=== PATIENT | female | born 1995 | race Caucasian/White ===

== ENCOUNTER 2017-03-06 13:12 | Inpatient (IN) | payer OTHER, BC ==
[2017-03-06] MEDS ORDERED: Sodium Chloride 0.9% 10 ML Syringe FLUSH PRN (17:07)
[2017-03-06] MEDS ORDERED: Ampicillin 2 GM in Sodium Chloride 0.9% 100 ML IV SCH (17:30)
[2017-03-06] MEDS ORDERED: Ondansetron 4 MG/2 ML SDV IVPUSH PRN (17:35)
[2017-03-06] MEDS ORDERED: Oxytocin/Lactated Ringers 10 UNIT/1,000 ML BAG IV SCH ×2 (17:45)
[2017-03-06] MEDS ORDERED: Ampicillin 2 GM in Sodium Chloride 0.9% 100 ML IV ONE (18:00)
[2017-03-06] MEDS: Lactated Ringers 1,000 ML IV SCH (18:07)
[2017-03-06] MEDS: Misoprostol 25 MCG (1/4 of 100 MCG) Tab VAG SCH ×2 (18:11→22:18)
[2017-03-06] MEDS ORDERED: Ampicillin 1 GM in Sodium Chloride 0.9% 100 ML IV SCH (21:30)
[2017-03-06] MEDS: Ampicillin 1 GM in Sodium Chloride 0.9% 100 ML IV SCH (22:07)
[2017-03-07] MEDS ORDERED: Acetaminophen 325 MG Tab PO PRN (01:43)
[2017-03-07] MEDS: Ampicillin 1 GM in Sodium Chloride 0.9% 100 ML IV SCH ×4 (02:04→22:25)
[2017-03-07] MEDS: Misoprostol 25 MCG (1/4 of 100 MCG) Tab VAG SCH (03:46)
[2017-03-07] MEDS: Nalbuphine 20 MG/1 ML Amp IVPUSH PRN ×2 (07:01→09:19)
[2017-03-07] MEDS: Lactated Ringers 1,000 ML IV SCH (10:20)
[2017-03-07] MEDS ORDERED: diphenhydrAMINE 50 MG/ML SDV IVPUSH PRN ×4 (10:38→16:51)
[2017-03-07] MEDS ORDERED: ePHEDrine 50 MG/ML SDV IVPUSH PRN ×3 (10:38→16:19)
[2017-03-07] MEDS ORDERED: fentaNYL 100 MCG/2 ML SDV EPIDUR PRN (10:38)
[2017-03-07] MEDS ORDERED: Bupivacaine/fentaNYL/NS 100 ML Bag EPIDUR SCH (10:45)
--- NOTE | 2017-03-07 11:30 | PCM.PREANE ---
Preanesthetic Assessment - Anesthesia/Transfusion/Family Hx Anesthesia History: Prior Anesthesia Without Reaction Family History of Anesthesia Reaction: No Transfusion History: No Prior Transfusion(s) Intubation History: Unknown - Review of Systems General: No Symptoms Pulmonary: No Symptoms Cardiovascular: No Symptoms, Other (Borderline Hypertension with ) Gastrointestinal: No Symptoms Neurological: No Symptoms Other: Reports: None - Physical Assessment O2 Sat by Pulse Oximetry: 97 Respiratory Rate: 18 Vital Signs: Last Vital Signs Temp 37.3 C 03/06/17 16:00 Pulse 88 03/06/17 16:00 Resp 18 03/06/17 16:00 BP 143/78 H 03/06/17 16:00 Pulse Ox 97 03/06/17 16:00 Height: 1.7 m Weight: 133.356 kg ASA Class: 2 Mental Status: Alert & Oriented x3 Airway Class: Mallampati = 2 Dentition: Reports: Normal Dentition Thyro-Mental Finger Breadths: 3 Mouth Opening Finger Breadths: 3 ROM/Head Extension: Full Lungs: Clear to Auscultation, Normal Respiratory Effort Cardiovascular: Regular Rate, Regular Rhythm - Lab Values: Laboratory Last Values WBC 14.54 K/mm3 (3.98-10.04) H 03/07/17 02:42 RBC 3.99 M/mm3 (3.98-5.22) 03/07/17 02:42 Hgb 11.8 gm/L (11.2-15.7) 03/07/17 02:42 Hct 35.8 % (34.1-44.9) 03/07/17 02:42 MCV 89.7 fl (79.4-94.8) 03/07/17 02:42 MCH 29.6 pg (25.6-32.2) 03/07/17 02:42 MCHC 33.0 g/dl (32.2-35.5) 03/07/17 02:42 RDW Std Deviation 46.9 fL (36.4-46.3) H 03/07/17 02:42 Plt Count 302 K/mm3 (182-369) 03/07/17 02:42 MPV 10.1 fl (9.4-12.3) 03/07/17 02:42 Neut % (Auto) 75.1 % (34.0-71.1) H 03/07/17 02:42 Lymph % (Auto) 14.9 % (19.3-51.7) L 03/07/17 02:42 [place] % (Auto) 8.3 % (4.7-12.5) 03/07/17 02:42 Eos % (Auto) 1.2 (0.7-5.8) 03/07/17 02:42 Baso % (Auto) 0.2 % (0.1-1.2) 03/07/17 02:42 Neut # (Auto) 10.92 K/mm3 (1.56-6.13) H 03/07/17 02:42 Lymph # (Auto) 2.16 K/mm3 (1.18-3.74) 03/07/17 02:42 [place] # (Auto) 1.20 K/mm3 (0.24-0.36) H 03/07/17 02:42 Eos # (Auto) 0.18 K/mm3 (0.04-0.36) 03/07/17 02:42 Baso # (Auto) 0.03 K/mm3 (0.01-0.08) 03/07/17 02:42 BUN 9 mg/dL (7-18) 03/07/17 02:42 Creatinine 0.7 mg/dL (0.55-1.02) 03/07/17 02:42 Est Cr Clr Drug Dosing 121.55 mL/min 03/07/17 02:42 Estimated GFR (MDRD) > 60 mL/min (>60) 03/07/17 02:42 Uric Acid 4.6 mg/dL (2.6-6.0) 03/07/17 02:42 AST 26 U/L (15-37) 03/07/17 02:42 ALT 22 U/L (14-59) 03/07/17 02:42 Lactate Dehydrogenase 153 U/L (81-234) 03/07/17 02:42 - Allergies Allergies/Adverse Reactions: Allergies Allergy/AdvReac Type Severity Reaction Status Date / Time adhesive Allergy Mild Rash Verified 03/06/17 16:34 minocycline Allergy Hives Verified 06/09/15 14:50 - Acknowledgements Anesthesia Type Planned: Epidural Pt an Appropriate Candidate for the Planned Anesthesia: Yes Alternatives and Risks of Anesthesia Discussed w Pt/Guardian: Yes Pt/Guardian Understands and Agrees with Anesthesia Plan: Yes PreAnesthesia Questionnaire - Past Health History Medical/Surgical History: Denies Medical/Surgical History Endocrine/Metabolic History: Reports: Obesity/BMI 30+ Dermatologic History: Reports: Other (See Below) Other Dermatologic History: acne - Past Surgical History HEENT Surgical History: Reports: Oral Surgery - SUBSTANCE USE Smoking Status *Q: Never Smoker Tobacco Use Within Last Twelve Months: No Second Hand Smoke Exposure: No Recreational Drug Use History: No - HOME MEDS Home Medications: Home Meds PNV95/Ferrous Fumarate/FA [ Tablet] 1 each PO DAILY 06/09/15 [History] Spironolactone 1 tab PO DAILY 06/09/15 [History] - CURRENT (IN HOUSE) MEDS Current Meds: Current Medications Acetaminophen (Tylenol) 650 mg PO Q4H PRN PRN Reason: Headache Last Admin: 03/07/17 02:02 Dose: 650 mg Diphenhydramine HCl (Benadryl) 25 mg IVPUSH Q6H PRN PRN Reason: Pruritis Ephedrine Sulfate (Ephedrine Sulfate) 5 mg IVPUSH ASDIRECTED PRN PRN Reason: Hypotension Fentanyl (Sublimaze) 100 mcg EPIDUR ONETIME PRN PRN Reason: Pain Last Admin: 03/07/17 11:20 Dose: 100 mcg Fentanyl/Bupivacaine HCl (Fentanyl/Bupivacaine/Ns 2 Mcg-0.125% 100 Ml) 100 ml EPIDUR ASDIRECTED AMISHA Last Admin: 03/07/17 11:19 Dose: 100 ml Lactated Ringer's (Ringers, Lactated) 1,000 mls @ 40 mls/hr IV ASDIRECTED AMISHA Last Admin: 03/07/17 10:20 Dose: 40 mls/hr Oxytocin/Lactated Ringer's (Pitocin In Lr 10 Units/1,000 Ml) 10 unit in 1,000 mls @ 12 mls/hr IV TITRATE AMISHA; 2 MUNITS/MIN PRN Reason: Protocol Last Titration: 03/07/17 08:28 Dose: 8 munits/min, 48 mls/hr Oxytocin/Lactated Ringer's (Pitocin In Lr 10 Units/1,000 Ml) 10 unit in 1,000 mls @ 500 mls/hr IV .CONTINUOUS AMISHA Ampicillin Sodium 1 gm/ Sodium (Chloride) 100 mls @ 200 mls/hr IV Q4H AMISHA Last Admin: 03/07/17 10:01 Dose: 200 mls/hr Nalbuphine HCl (Nubain) 10 mg IVPUSH Q2H PRN PRN Reason: Pain (moderate 4-6) Last Admin: 03/07/17 09:19 Dose: 10 mg Ondansetron HCl (Zofran) 4 mg IVPUSH Q4H PRN PRN Reason: Nausea/Vomiting Sodium Chloride (Saline Flush) 10 ml FLUSH ASDIRECTED PRN PRN Reason: Keep Vein Open Discontinued Medications Ampicillin Sodium 2 gm/ Sodium (Chloride) 100 mls @ 200 mls/hr IV NOW AMISHA Ampicillin Sodium 1 gm/ Sodium (Chloride) 100 mls @ 200 mls/hr IV Q4H [facility] Ampicillin Sodium 2 gm/ Sodium (Chloride) 100 mls @ 200 mls/hr IV ONETIME ONE Stop: 03/06/17 18:29 Last Admin: 03/06/17 18:08 Dose: 200 mls/hr Misoprostol (Cytotec) 25 mcg VAG Q4HR [facility] Stop: 03/07/17 01:01 Last Admin: 03/07/17 03:46 Dose: Not Given
[2017-03-07] MEDS ORDERED: Bupivacaine 0.25% 10 ML SDV ONE (12:00)
[2017-03-07] MEDS ORDERED: Bupivacaine 0.5% 30 ML SDV ONE (12:33)
[2017-03-07] MEDS ORDERED: ceFAZolin 1 GM in Premix Bag 1 BAG IV ONE (12:41)
[2017-03-07] MEDS ORDERED: ceFAZolin 2 GM in Premix Bag 1 BAG IV ONE (12:41)
[2017-03-07] MEDS ORDERED: Citric Acid/Sodium Citrate Solution 30 ML Cup PO ONE (12:41)
[2017-03-07] MEDS ORDERED: Metoclopramide 10 MG/2 ML SDV IVPUSH ONE (12:41)
--- NOTE | 2017-03-07 12:49 | PCM.LDHP ---
L&D History of Present Illness - General Date of Service: 03/06/17 Admit Problem/Dx: Patient Status Order with Admit Dx/Problem 03/06/17 17:32 Patient Status [ADT] Routine Admission Diagnosis/Problem Admission Diagnosis/Problem - History of Present Illness Introduction:: 21 year old female here with elevated blood pressures at 39+ week for induction of labor. Pain Score: 8 - Related Data Allergies/Adverse Reactions: Allergies Allergy/AdvReac Type Severity Reaction Status Date / Time adhesive Allergy Mild Rash Verified 03/06/17 16:34 minocycline Allergy Hives Verified 06/09/15 14:50 Home Medications: Home Meds PNV95/Ferrous Fumarate/FA [ Tablet] 1 each PO DAILY 06/09/15 [History] Spironolactone 1 tab PO DAILY 06/09/15 [History] Past Medical History - Past Health History Medical/Surgical History: Denies Medical/Surgical History Endocrine/Metabolic History: Reports: Obesity/BMI 30+ Dermatologic History: Reports: Other (See Below) Other Dermatologic History: acne - Past Surgical History HEENT Surgical History: Reports: Oral Surgery Social & Family History - Family History Family Medical History: Noncontributory - Tobacco Use Smoking Status *Q: Never Smoker Used Tobacco, but Quit: No Second Hand Smoke Exposure: No - Caffeine Use Caffeine Use: Reports: None - Recreational Drug Use Recreational Drug Use: No Drug Use in Last 12 Months: No H&P Review of Systems - Review of Systems: Review Of Systems: See Below General: Reports: No Symptoms HEENT: Reports: No Symptoms Pulmonary: Reports: No Symptoms Cardiovascular: Reports: No Symptoms Gastrointestinal: Reports: No Symptoms Genitourinary: Reports: No Symptoms Musculoskeletal: Reports: No Symptoms Skin: Reports: No Symptoms Psychiatric: Reports: No Symptoms Neurological: Reports: No Symptoms Hematologic/Lymphatic: Reports: No Symptoms Immunologic: Reports: No Symptoms L&D Exam - Exam Exam: See Below - Vital Signs Vital Signs: Last Vital Signs Temp 36.9 C 03/07/17 12:00 Pulse 81 03/07/17 12:00 Resp 18 03/07/17 12:00 BP 111/49 L 03/07/17 12:00 Pulse Ox 100 03/07/17 12:00 Weight: 133.356 kg - OB Specific Contraction Intensity: Moderate to Strong Movement: Active Heart Tones: Present Heart Tones per Min: 145 Heart Rate (FHR) Variability: Moderate (6-25 bmp) Presentation: Vertex - [place]icona Score Licona Score Cervix Position: Posterior [place] Score Consistency: Firm [place] Score Effacement: 0-30% [place] Score Dilation: Closed [place] Score 's Station: -3 [place] Score Total: 0 - Exam General: Alert, Oriented HEENT: PERRLA, Conjunctiva Clear, EACs Clear, EOMI, Hearing Intact, Mucosa Moist & [place] Extension, Nares Patent, Normal Nasal Septum, Posterior Pharynx Clear, TMs Clear Neck: Supple, Trachea Midline Lungs: Clear to Auscultation, Normal Respiratory Effort Cardiovascular: Regular Rate, Regular Rhythm GI/Abdominal Exam: Normal Bowel Sounds, Soft, Non-Tender, No Organomegaly, No Distention, No Abnormal Bruit, No Mass, Pelvis Stable Rectal Exam: Normal Exam, Normal Rectal Tone Genitourinary: Normal external exam, Normal bimanual exam, Normal speculum exam Back Exam: Normal Inspection, Full Range of Motion Extremities: Normal Inspection, Normal Range of Motion, Non-Tender, No Pedal Edema, Normal Capillary Refill Skin: Warm, Dry, Intact Neurological: Cranial Nerves Intact, Reflexes Equal Bilateral Psychiatric: Alert, Normal Affect, Normal Mood - Patient Data Lab Results Last 24 hrs: Laboratory Results - last 24 hr 03/06/17 03/07/17 03/07/17 Range/Units 18:19 02:42 02:42 WBC 13.39 H 14.54 H (3.98-10.04) K/mm3 RBC 4.26 3.99 (3.98-5.22) M/mm3 Hgb 12.7 11.8 (11.2-15.7) gm/L Hct 38.3 35.8 (34.1-44.9) % MCV 89.9 89.7 (79.4-94.8) fl MCH 29.8 29.6 (25.6-32.2) pg MCHC 33.2 33.0 (32.2-35.5) g/dl RDW Std Deviation 47.4 H 46.9 H (36.4-46.3) fL Plt Count 340 302 (182-369) K/mm3 MPV 10.1 10.1 (9.4-12.3) fl Neut % (Auto) 77.5 H 75.1 H (34.0-71.1) % Lymph % (Auto) 12.7 L 14.9 L (19.3-51.7) % [place] % (Auto) 8.2 8.3 (4.7-12.5) % Eos % (Auto) 1.0 1.2 (0.7-5.8) Baso % (Auto) 0.2 0.2 (0.1-1.2) % Neut # (Auto) 10.36 H 10.92 H (1.56-6.13) K/mm3 Lymph # (Auto) 1.70 2.16 (1.18-3.74) K/mm3 [place] # (Auto) 1.10 H 1.20 H (0.24-0.36) K/mm3 Eos # (Auto) 0.14 0.18 (0.04-0.36) K/mm3 Baso # (Auto) 0.03 0.03 (0.01-0.08) K/mm3 BUN 9 (7-18) mg/dL Creatinine 0.7 (0.55-1.02) mg/dL Est Cr Clr Drug Dosing 121.55 mL/min Estimated GFR (MDRD) > 60 (>60) mL/min Uric Acid 4.6 (2.6-6.0) mg/dL AST 26 (15-37) U/L ALT 22 (14-59) U/L Lactate Dehydrogenase 153 (81-234) U/L Blood Type 03/07/17 Range/Units 12:00 WBC (3.98-10.04) K/mm3 RBC (3.98-5.22) M/mm3 Hgb (11.2-15.7) gm/L Hct (34.1-44.9) % MCV (79.4-94.8) fl MCH (25.6-32.2) pg MCHC (32.2-35.5) g/dl RDW Std Deviation (36.4-46.3) fL Plt Count (182-369) K/mm3 MPV (9.4-12.3) fl Neut % (Auto) (34.0-71.1) % Lymph % (Auto) (19.3-51.7) % [place] % (Auto) (4.7-12.5) % Eos % (Auto) (0.7-5.8) Baso % (Auto) (0.1-1.2) % Neut # (Auto) (1.56-6.13) K/mm3 Lymph # (Auto) (1.18-3.74) K/mm3 [place] # (Auto) (0.24-0.36) K/mm3 Eos # (Auto) (0.04-0.36) K/mm3 Baso # (Auto) (0.01-0.08) K/mm3 BUN (7-18) mg/dL Creatinine (0.55-1.02) mg/dL Est Cr Clr Drug Dosing mL/min Estimated GFR (MDRD) (>60) mL/min Uric Acid (2.6-6.0) mg/dL AST (15-37) U/L ALT (14-59) U/L Lactate Dehydrogenase (81-234) U/L Blood Type O POSITIVE Result Diagrams: 03/07/17 02:42 03/07/17 02:42 Problem List Initiated/Reviewed/Updated: Yes Orders Last 24hrs: Active Orders 24 hr Category Date Time Status Patient Status [ADT] Routine ADT 03/06/17 17:32 Active Communication Order [RC] ASDIRECTED Care 03/06/17 17:07 Active Communication Order [RC] ASDIRECTED Care 03/06/17 17:07 Active Communication Order [RC] ASDIRECTED Care 03/07/17 02:40 Active Notify Provider [RC] ASDIRECTED Care 03/06/17 17:07 Active Notify Provider [RC] ASDIRECTED Care 03/07/17 10:38 Active Peripheral IV Care [RC] . DIRECTED Care 03/06/17 17:07 Active Procedure Site Prep Instruct [RC] ASDIRECTED Care 03/07/17 12:41 Active Verify Patient Consent Obtain [RC] PER UNIT ROUTINE Care 03/07/17 12:41 Active Regular Diet [DIET] Diet 03/06/17 Dinner Active PATIENT RETYPE [BBK] Stat Lab 03/07/17 12:00 Results TYPE AND SCREEN [BBK] Stat Lab 03/07/17 12:00 Results Acetaminophen [Tylenol] Med 03/07/17 01:43 Active 650 mg PO Q4H PRN Ampicillin 1 gm Med 03/06/17 22:00 Active Sodium Chloride 0.9% [Normal Saline] 100 ml IV Q4H Bupivacaine/fentaNYL/NS [fentaNYL/Bupivacaine/NS 2 MCG- Med 03/07/17 10:45 Active 0.125% 100 ML] 100 ml EPIDUR ASDIRECTED Lactated Ringers [Ringers, Lactated] 1,000 ml Med 03/06/17 17:15 Active IV ASDIRECTED Nalbuphine [Nubain] Med 03/06/17 17:35 Active 10 mg IVPUSH Q2H PRN Ondansetron [Zofran] Med 03/06/17 17:35 Active 4 mg IVPUSH Q4H PRN Oxytocin/Lactated Ringers [Pitocin in LR 10 Units/1,000 Med 03/06/17 17:45 Active ML] 10 unit in 1,000 ml IV .CONTINUOUS Oxytocin/Lactated Ringers [Pitocin in LR 10 Units/1,000 Med 03/06/17 17:45 Active ML] 10 unit in 1,000 ml IV TITRATE Sodium Chloride 0.9% [Saline Flush] Med 03/06/17 17:07 Active 10 ml FLUSH ASDIRECTED PRN ceFAZolin [Ancef] 1 gm Med 03/07/17 12:41 Active Premix Bag 1 bag IV ONETIME ceFAZolin [Ancef] 2 gm Med 03/07/17 12:41 Active Premix Bag 1 bag IV ONETIME diphenhydrAMINE [Benadryl] Med 03/07/17 10:38 Active 25 mg IVPUSH Q6H PRN ePHEDrine [ePHEDrine Sulfate] Med 03/07/17 10:38 Active 5 mg IVPUSH ASDIRECTED PRN fentaNYL [Sublimaze] Med 03/07/17 10:38 Active 100 mcg EPIDUR ONETIME PRN PIH Panel [OM.PC] Routine Oth 03/07/17 02:15 Ordered Peripheral IV Insertion Adult [OM.PC] Routine Oth 03/06/17 17:07 Ordered Schedule Procedure [COMM] Per Unit Routine Oth 03/07/17 12:41 Ordered Resuscitation Status Routine Resus Stat 03/06/17 17:35 Ordered Medication Orders Acetaminophen (Tylenol) 650 mg PO Q4H PRN PRN Reason: Headache Last Admin: 03/07/17 02:02 Dose: 650 mg Diphenhydramine HCl (Benadryl) 25 mg IVPUSH Q6H PRN PRN Reason: Pruritis Ephedrine Sulfate (Ephedrine Sulfate) 5 mg IVPUSH ASDIRECTED PRN PRN Reason: Hypotension Fentanyl (Sublimaze) 100 mcg EPIDUR ONETIME PRN PRN Reason: Pain Last Admin: 03/07/17 11:20 Dose: 100 mcg Fentanyl/Bupivacaine HCl (Fentanyl/Bupivacaine/Ns 2 Mcg-0.125% 100 Ml) 100 ml EPIDUR ASDIRECTED AMISHA Last Admin: 03/07/17 11:19 Dose: 100 ml Lactated Ringer's (Ringers, Lactated) 1,000 mls @ 40 mls/hr IV ASDIRECTED AMISHA Last Admin: 03/07/17 10:20 Dose: 40 mls/hr Infusion: 03/07/17 10:20 Dose: 40 mls/hr Admin: 03/06/17 18:07 Dose: 40 mls/hr Oxytocin/Lactated Ringer's (Pitocin In Lr 10 Units/1,000 Ml) 10 unit in 1,000 mls @ 12 mls/hr IV TITRATE AMISHA; 2 MUNITS/MIN PRN Reason: Protocol Last Titration: 03/07/17 08:28 Dose: 8 munits/min, 48 mls/hr Titration: 03/07/17 05:20 Dose: 6 munits/min, 36 mls/hr Titration: 03/07/17 04:22 Dose: 4 munits/min, 24 mls/hr Admin: 03/07/17 03:44 Dose: 2 munits/min, 12 mls/hr Oxytocin/Lactated Ringer's (Pitocin In Lr 10 Units/1,000 Ml) 10 unit in 1,000 mls @ 500 mls/hr IV .CONTINUOUS AMISHA Ampicillin Sodium 1 gm/ Sodium (Chloride) 100 mls @ 200 mls/hr IV Q4H AMISHA Last Admin: 03/07/17 10:01 Dose: 200 mls/hr Infusion: 03/07/17 07:30 Dose: 200 mls/hr Admin: 03/07/17 07:00 Dose: 200 mls/hr Infusion: 03/07/17 02:34 Dose: 200 mls/hr Admin: 03/07/17 02:04 Dose: 200 mls/hr Infusion: 03/06/17 22:37 Dose: 200 mls/hr Admin: 03/06/17 22:07 Dose: 200 mls/hr Cefazolin Sodium/Dextrose 1 gm (/ Premix) 50 mls @ 100 mls/hr IV ONETIME ONE Stop: 03/07/17 13:10 Cefazolin Sodium/Dextrose 2 gm (/ Premix) 50 mls @ 100 mls/hr IV ONETIME ONE Stop: 03/07/17 13:10 Nalbuphine HCl (Nubain) 10 mg IVPUSH Q2H PRN PRN Reason: Pain (moderate 4-6) Last Admin: 03/07/17 09:19 Dose: 10 mg Admin: 03/07/17 07:01 Dose: 10 mg Ondansetron HCl (Zofran) 4 mg IVPUSH Q4H PRN PRN Reason: Nausea/Vomiting Sodium Chloride (Saline Flush) 10 ml FLUSH ASDIRECTED PRN PRN Reason: Keep Vein Open Assessment/Plan Comment:: Term induction for gestational hypertension. Cytotec
--- NOTE | 2017-03-07 12:51 | PCM.PNLD ---
Labor Progress Note - VS & Meds Vital Signs: Last Vital Signs Temp 36.9 C 03/07/17 12:00 Pulse 81 03/07/17 12:00 Resp 18 03/07/17 12:00 BP 111/49 L 03/07/17 12:00 Pulse Ox 100 03/07/17 12:00 Active Medications: Current Medications Acetaminophen (Tylenol) 650 mg PO Q4H PRN PRN Reason: Headache Last Admin: 03/07/17 02:02 Dose: 650 mg Diphenhydramine HCl (Benadryl) 25 mg IVPUSH Q6H PRN PRN Reason: Pruritis Ephedrine Sulfate (Ephedrine Sulfate) 5 mg IVPUSH ASDIRECTED PRN PRN Reason: Hypotension Fentanyl (Sublimaze) 100 mcg EPIDUR ONETIME PRN PRN Reason: Pain Last Admin: 03/07/17 11:20 Dose: 100 mcg Fentanyl/Bupivacaine HCl (Fentanyl/Bupivacaine/Ns 2 Mcg-0.125% 100 Ml) 100 ml EPIDUR ASDIRECTED AMISHA Last Admin: 03/07/17 11:19 Dose: 100 ml Lactated Ringer's (Ringers, Lactated) 1,000 mls @ 40 mls/hr IV ASDIRECTED AMISHA Last Admin: 03/07/17 10:20 Dose: 40 mls/hr Oxytocin/Lactated Ringer's (Pitocin In Lr 10 Units/1,000 Ml) 10 unit in 1,000 mls @ 12 mls/hr IV TITRATE AMISHA; 2 MUNITS/MIN PRN Reason: Protocol Last Titration: 03/07/17 08:28 Dose: 8 munits/min, 48 mls/hr Oxytocin/Lactated Ringer's (Pitocin In Lr 10 Units/1,000 Ml) 10 unit in 1,000 mls @ 500 mls/hr IV .CONTINUOUS AMISHA Ampicillin Sodium 1 gm/ Sodium (Chloride) 100 mls @ 200 mls/hr IV Q4H AMISHA Last Admin: 03/07/17 10:01 Dose: 200 mls/hr Cefazolin Sodium/Dextrose 1 gm (/ Premix) 50 mls @ 100 mls/hr IV ONETIME ONE Stop: 03/07/17 13:10 Cefazolin Sodium/Dextrose 2 gm (/ Premix) 50 mls @ 100 mls/hr IV ONETIME ONE Stop: 03/07/17 13:10 Nalbuphine HCl (Nubain) 10 mg IVPUSH Q2H PRN PRN Reason: Pain (moderate 4-6) Last Admin: 03/07/17 09:19 Dose: 10 mg Ondansetron HCl (Zofran) 4 mg IVPUSH Q4H PRN PRN Reason: Nausea/Vomiting Sodium Chloride (Saline Flush) 10 ml FLUSH ASDIRECTED PRN PRN Reason: Keep Vein Open Discontinued Medications Bupivacaine HCl (Marcaine 0.5%) Confirm Administered Dose 30 ml .ROUTE .STK-MED ONE Stop: 03/07/17 12:34 Citric Acid/Sodium Citrate (Bicitra Solution) 30 ml PO ONETIME ONE Stop: 03/07/17 12:42 Ampicillin Sodium 2 gm/ Sodium (Chloride) 100 mls @ 200 mls/hr IV NOW AMISHA Ampicillin Sodium 1 gm/ Sodium (Chloride) 100 mls @ 200 mls/hr IV Q4H AMISHA Ampicillin Sodium 2 gm/ Sodium (Chloride) 100 mls @ 200 mls/hr IV ONETIME ONE Stop: 03/06/17 18:29 Last Admin: 03/06/17 18:08 Dose: 200 mls/hr Metoclopramide HCl (Reglan) 10 mg IVPUSH ONETIME ONE Stop: 03/07/17 12:42 Misoprostol (Cytotec) 25 mcg VAG Q4HR AMISHA Stop: 03/07/17 01:01 Last Admin: 03/07/17 03:46 Dose: Not Given - Uterine Contractions Uterine Monitoring Mode: External [place] Contraction Intensity: Mild to Moderate Uterine Resting Tone: Soft - Monitoring Monitor Mode: External Ultrasound Heart Rate (FHR) Baseline: 140 Heart Rate (FHR) Variability: Moderate (6-25 bmp) Strip Review: Category I - Vaginal Exam Dilation (cm): 2 Station: -3 Cervical Position: Midposition - Labor Progress (Free Text) Labor Progress: Good progress with cytotec and now pitocin.
--- NOTE | 2017-03-07 12:52 | PCM.PNLD ---
Labor Progress Note - VS & Meds Vital Signs: Last Vital Signs Temp 36.9 C 03/07/17 12:00 Pulse 81 03/07/17 12:00 Resp 18 03/07/17 12:00 BP 111/49 L 03/07/17 12:00 Pulse Ox 100 03/07/17 12:00 Active Medications: Current Medications Acetaminophen (Tylenol) 650 mg PO Q4H PRN PRN Reason: Headache Last Admin: 03/07/17 02:02 Dose: 650 mg Diphenhydramine HCl (Benadryl) 25 mg IVPUSH Q6H PRN PRN Reason: Pruritis Ephedrine Sulfate (Ephedrine Sulfate) 5 mg IVPUSH ASDIRECTED PRN PRN Reason: Hypotension Fentanyl (Sublimaze) 100 mcg EPIDUR ONETIME PRN PRN Reason: Pain Last Admin: 03/07/17 11:20 Dose: 100 mcg Fentanyl/Bupivacaine HCl (Fentanyl/Bupivacaine/Ns 2 Mcg-0.125% 100 Ml) 100 ml EPIDUR ASDIRECTED AMISHA Last Admin: 03/07/17 11:19 Dose: 100 ml Lactated Ringer's (Ringers, Lactated) 1,000 mls @ 40 mls/hr IV ASDIRECTED AMISHA Last Admin: 03/07/17 10:20 Dose: 40 mls/hr Oxytocin/Lactated Ringer's (Pitocin In Lr 10 Units/1,000 Ml) 10 unit in 1,000 mls @ 12 mls/hr IV TITRATE AMISHA; 2 MUNITS/MIN PRN Reason: Protocol Last Titration: 03/07/17 08:28 Dose: 8 munits/min, 48 mls/hr Oxytocin/Lactated Ringer's (Pitocin In Lr 10 Units/1,000 Ml) 10 unit in 1,000 mls @ 500 mls/hr IV .CONTINUOUS AMISHA Ampicillin Sodium 1 gm/ Sodium (Chloride) 100 mls @ 200 mls/hr IV Q4H AMISHA Last Admin: 03/07/17 10:01 Dose: 200 mls/hr Cefazolin Sodium/Dextrose 1 gm (/ Premix) 50 mls @ 100 mls/hr IV ONETIME ONE Stop: 03/07/17 13:10 Cefazolin Sodium/Dextrose 2 gm (/ Premix) 50 mls @ 100 mls/hr IV ONETIME ONE Stop: 03/07/17 13:10 Nalbuphine HCl (Nubain) 10 mg IVPUSH Q2H PRN PRN Reason: Pain (moderate 4-6) Last Admin: 03/07/17 09:19 Dose: 10 mg Ondansetron HCl (Zofran) 4 mg IVPUSH Q4H PRN PRN Reason: Nausea/Vomiting Sodium Chloride (Saline Flush) 10 ml FLUSH ASDIRECTED PRN PRN Reason: Keep Vein Open Discontinued Medications Bupivacaine HCl (Marcaine 0.5%) Confirm Administered Dose 30 ml .ROUTE .STK-MED ONE Stop: 03/07/17 12:34 Citric Acid/Sodium Citrate (Bicitra Solution) 30 ml PO ONETIME ONE Stop: 03/07/17 12:42 Ampicillin Sodium 2 gm/ Sodium (Chloride) 100 mls @ 200 mls/hr IV NOW AMISHA Ampicillin Sodium 1 gm/ Sodium (Chloride) 100 mls @ 200 mls/hr IV Q4H AMISHA Ampicillin Sodium 2 gm/ Sodium (Chloride) 100 mls @ 200 mls/hr IV ONETIME ONE Stop: 03/06/17 18:29 Last Admin: 03/06/17 18:08 Dose: 200 mls/hr Metoclopramide HCl (Reglan) 10 mg IVPUSH ONETIME ONE Stop: 03/07/17 12:42 Misoprostol (Cytotec) 25 mcg VAG Q4HR AMISHA Stop: 03/07/17 01:01 Last Admin: 03/07/17 03:46 Dose: Not Given - Uterine Contractions Uterine Monitoring Mode: External [place] Contraction Intensity: Mild to Moderate Uterine Resting Tone: Soft - Monitoring Monitor Mode: External Ultrasound Heart Rate (FHR) Baseline: 140 Heart Rate (FHR) Variability: Moderate (6-25 bmp) Strip Review: Category III - Vaginal Exam Dilation (cm): 2 Station: -2 Cervical Position: Midposition - Labor Progress (Free Text) Labor Progress: Two prolonged decelerations. Overall acceptable variability but not tolerating labor well.
[2017-03-07] MEDS ORDERED: Carboprost Tromethamine 250 MCG/1 ML Amp ONE (13:12)
[2017-03-07] MEDS ORDERED: Morphine PF 10 MG/10 ML SDV ONE (13:22)
[2017-03-07] MEDS ORDERED: Ondansetron 4 MG/2 ML SDV IVPUSH PRN ×2 (13:33→16:51)
--- NOTE | 2017-03-07 13:50 | PCM.OPNOTE ---
- General Post-Op/Procedure Note Date of Surgery/Procedure: 03/07/17 Operative Procedure(s): primary section Findings: viable female, weight 6#4oz, apgars 8/9, normal uterus/tubes and ovaries. Pre Op Diagnosis: non reassuring heart tones Post-Op Diagnosis: Same Anesthesia Technique: Spinal Primary Surgeon: Jolie Ardon Therapeutic Support Staff: Bessy Crain Fluid Replacement, Intraop: 2,600 Output, Urine Amount: 150 EBL in mLs: 1,200 Complications: None Condition: Good Free Text/Narrative:: Intake & Output 03/06/17 03/07/17 03/07/17 22:59 06:59 14:59 Intake Total 180 Balance 180 The patient was taken to the operating room where epidural anesthesia was dosed to surgical levels without difficulty. The patient was prepped and draped in the usual sterile fashion in the dorsal supine position with a leftward tilt. A Pfannenstiel skin incision was made with the scalpel and carried through to the underlying layer of fascia. The fascia was incised in the midline and extended laterally using Villanueva scissors. Brian clamps were used to elevate the superior aspect of the fascial incision, which was elevated, and the underlying rectus muscles were dissected off bluntly and using Villanueva scissors. Attention was then turned to the inferior aspect of the fascial incision, which in similar fashion was grasped with Brian clamps, elevated, and the underlying rectus muscles were dissected off bluntly and using the villanueva. The rectus muscles were dissected in the midline. The peritoneum was entered bluntly; this incision was extended superiorly and inferiorly with good visualization of the bladder. The bladder blade was inserted. The vesicouterine peritoneum was identified and entered sharply using Metzenbaum scissors. This incision was extended laterally and the bladder flap was created digitally. The bladder blade was reinserted. The lower uterine segment was incised in a transverse fashion using the scalpel and with digital traction. Clear fluid was noted. The infant was subsequently delivered by flexing the head to the incision. Body and shoulders followed without difficulty. The cord was clamped and cut. The was subsequently handed to the awaiting assurance assistant whose presence had been requested.. The placenta was delivered spontaneously intact with a three-vessel cord noted. The uterus was exteriorized and cleared of all clots and debris. The uterine incision was repaired in 2 layers using 0 monocryl. Hemostasis was visualized. Hemostasis was visualized bilaterally. The uterus was returned to the abdomen. The uterine incision was reexamined and it was noted to be hemostatic. The pelvis was copiously irrigated. The fascia was closed with 1 PDS suture, and the skin was closed with 3-0 monocryl. Sponge, lap, and instrument counts were correct x2. The patient was stable at the completion of the procedure and was subsequently transferred to the recovery room in stable condition.
--- NOTE | 2017-03-07 14:08 | PCM.POSTAN ---
POST ANESTHESIA ASSESSMENT - MENTAL STATUS Mental Status: Alert, Oriented - VITAL SIGNS Pulse Rate: 79 SaO2: 99 Resp Rate: 22 Blood Pressure: 121/57 Temperature: 36.8 C - RESPIRATORY Respiratory Status: Respiratory Rate WNL, Airway Patent, O2 Saturation Stable - CARDIOVASCULAR CV Status: Pulse Rate WNL, Blood Pressure Stable - GASTROINTESTINAL GI Status: No Symptoms - PAIN Pain Score: 0 - POST OP HYDRATION Hydration Status: Adequate & Stable
[2017-03-07] MEDS ORDERED: Lanolin 100% Cream 7 GM Tube TOP PRN (16:19)
[2017-03-07] MEDS ORDERED: Acetaminophen/oxyCODONE 325-5 MG Tab PO PRN (16:19)
[2017-03-07] MEDS ORDERED: Dextrose 5%-Lactated Ringers 1,000 ML IV SCH (16:19)
[2017-03-07] MEDS ORDERED: Ketorolac 30 MG/ML SDV IVPUSH SCH (16:19)
[2017-03-07] MEDS ORDERED: Naloxone 0.4 MG/ML SDV IVPUSH PRN (16:19)
--- NOTE | 2017-03-07 16:48 | PCM.SN ---
- Free Text/Narrative Note: Epidural catheter removed with ease at completion of procedure. Tip intact, no complications noted.
[2017-03-07] MEDS: Simethicone 80 MG Tab.Chew PO SCH ×2 (21:02→22:24)
[2017-03-07] MEDS: Ketorolac 30 MG/ML SDV IVPUSH SCH (21:03)
[2017-03-08] MEDS: Ketorolac 30 MG/ML SDV IVPUSH SCH ×2 (03:16→10:21)
--- NOTE | 2017-03-08 07:12 | PCM.PNPP ---
- General Info Date of Service: 03/08/17 Subjective Update: Some nausea over night. POD1 s/p 1LTCS. Doing great. Pain minimal. Seaman in. Functional Status: Reports: Pain Controlled - Review of Systems General: Reports: No Symptoms HEENT: Reports: No Symptoms Pulmonary: Reports: No Symptoms Cardiovascular: Reports: No Symptoms Gastrointestinal: Reports: Nausea Genitourinary: Reports: No Symptoms Musculoskeletal: Reports: No Symptoms Skin: Reports: No Symptoms Neurological: Reports: No Symptoms Psychiatric: Reports: No Symptoms - General Info Date of Service: 03/08/17 - Patient Data Vital Signs - Most Recent: Last Vital Signs Temp 36.3 C 03/08/17 04:15 Pulse 96 03/08/17 04:15 Resp 14 03/08/17 06:56 BP 106/69 03/08/17 04:15 Pulse Ox 94 L 03/08/17 06:56 Weight - Most Recent: 133.356 kg I&O - Last 24 Hours: Intake & Output 03/07/17 03/08/17 03/08/17 22:59 06:59 14:59 Intake Total 1000 1000 Output Total 900 350 Balance 100 650 Lab Results - Last 24 Hours: Laboratory Results - last 24 hr 03/07/17 Range/Units 12:00 Blood Type O POSITIVE Gel Antibody Screen Negative Med Orders - Current: Current Medications Diphenhydramine HCl (Benadryl) 25 mg IVPUSH Q6H PRN PRN Reason: Itching or Nausea Emollient Ointment (Lansinoh Hpa) 0 gm TOP ASDIRECTED PRN PRN Reason: Sore Nipples Ephedrine Sulfate (Ephedrine Sulfate) 5 mg IVPUSH SEECOMMENT PRN PRN Reason: Other Ibuprofen (Motrin) 600 mg PO Q6H PRN PRN Reason: mild pain or fever Ketorolac Tromethamine (Toradol) 30 mg IVPUSH Q6H [facility] Stop: 03/08/17 09:01 Last Admin: 03/08/17 03:16 Dose: 30 mg Naloxone HCl (Narcan) 0.1 mg IVPUSH SEECOMMENT PRN PRN Reason: Respiratory Depression Ondansetron HCl (Zofran) 4 mg IVPUSH ONETIME PRN PRN Reason: Nausea/Vomiting Last Admin: 03/07/17 18:38 Dose: 4 mg Oxycodone/Acetaminophen (Percocet 325-5 Mg) 2 tab PO Q6H PRN PRN Reason: Pain (moderate 4-6) Simethicone (Simethicone) 80 mg PO PCBED [facility] Last Admin: 03/07/17 22:24 Dose: Not Given Discontinued Medications Acetaminophen (Tylenol) 650 mg PO Q4H PRN PRN Reason: Headache Last Admin: 03/07/17 02:02 Dose: 650 mg Bupivacaine HCl (Marcaine 0.5%) Confirm Administered Dose 30 ml .ROUTE .STK-MED ONE Stop: 03/07/17 12:34 Last Admin: 03/07/17 13:07 Dose: 20 ml Carboprost Tromethamine (Hemabate Ds) Confirm Administered Dose 250 mcg .ROUTE .STK-MED ONE Stop: 03/07/17 13:13 Last Admin: 03/07/17 13:30 Dose: 250 mcg Citric Acid/Sodium Citrate (Bicitra Solution) 30 ml PO ONETIME ONE Stop: 03/07/17 12:42 Last Admin: 03/07/17 12:44 Dose: 30 ml Diphenhydramine HCl (Benadryl) 25 mg IVPUSH Q6H PRN PRN Reason: Pruritis Diphenhydramine HCl (Benadryl) 25 mg IVPUSH Q6H PRN PRN Reason: Pruritis Ephedrine Sulfate (Ephedrine Sulfate) 5 mg IVPUSH ASDIRECTED PRN PRN Reason: Hypotension Ephedrine Sulfate (Ephedrine Sulfate) 5 mg IVPUSH ASDIRECTED PRN PRN Reason: Hypotension Fentanyl (Sublimaze) 100 mcg EPIDUR ONETIME PRN PRN Reason: Pain Last Admin: 03/07/17 11:20 Dose: 100 mcg Fentanyl/Bupivacaine HCl (Fentanyl/Bupivacaine/Ns 2 Mcg-0.125% 100 Ml) 100 ml EPIDUR ASDIRECTED [facility] Last Admin: 03/07/17 11:19 Dose: 100 ml Lactated Ringer's (Ringers, Lactated) 1,000 mls @ 40 mls/hr IV ASDIRECTED [facility] Last Admin: 03/07/17 10:20 Dose: 40 mls/hr Ampicillin Sodium 2 gm/ Sodium (Chloride) 100 mls @ 200 mls/hr IV NOW [facility] Ampicillin Sodium 1 gm/ Sodium (Chloride) 100 mls @ 200 mls/hr IV Q4H [facility] Oxytocin/Lactated Ringer's (Pitocin In Lr 10 Units/1,000 Ml) 10 unit in 1,000 mls @ 12 mls/hr IV TITRATE [facility]; 2 MUNITS/MIN PRN Reason: Protocol Last Titration: 03/07/17 08:28 Dose: 8 munits/min, 48 mls/hr Oxytocin/Lactated Ringer's (Pitocin In Lr 10 Units/1,000 Ml) 10 unit in 1,000 mls @ 500 mls/hr IV .CONTINUOUS [facility] Ampicillin Sodium 2 gm/ Sodium (Chloride) 100 mls @ 200 mls/hr IV ONETIME ONE Stop: 03/06/17 18:29 Last Admin: 03/06/17 18:08 Dose: 200 mls/hr Ampicillin Sodium 1 gm/ Sodium (Chloride) 100 mls @ 200 mls/hr IV Q4H [facility] Last Admin: 03/07/17 22:25 Dose: Not Given Cefazolin Sodium/Dextrose 1 gm (/ Premix) 50 mls @ 100 mls/hr IV ONETIME ONE Stop: 03/07/17 13:10 Last Admin: 03/07/17 22:25 Dose: Not Given Cefazolin Sodium/Dextrose 2 gm (/ Premix) 50 mls @ 100 mls/hr IV ONETIME ONE Stop: 03/07/17 13:10 Last Admin: 03/07/17 22:25 Dose: Not Given Dextrose/Lactated Ringer's (Dextrose 5%-Lactated Ringers) 1,000 mls @ 125 mls/ hr IV ASDIRECTED [facility] Stop: 03/08/17 00:18 Last Admin: 03/07/17 21:02 Dose: 125 mls/hr Ketorolac Tromethamine (Toradol) 30 mg IVPUSH Q6H [facility] Stop: 03/08/17 04:20 Last Admin: 03/07/17 22:26 Dose: Not Given Metoclopramide HCl (Reglan) 10 mg IVPUSH ONETIME ONE Stop: 03/07/17 12:42 Last Admin: 03/07/17 12:43 Dose: 10 mg Misoprostol (Cytotec) 25 mcg VAG Q4HR [facility] Stop: 03/07/17 01:01 Last Admin: 03/07/17 03:46 Dose: Not Given Nalbuphine HCl (Nubain) 10 mg IVPUSH Q2H PRN PRN Reason: Pain (moderate 4-6) Last Admin: 03/07/17 09:19 Dose: 10 mg Ondansetron HCl (Zofran) 4 mg IVPUSH Q4H PRN PRN Reason: Nausea/Vomiting Ondansetron HCl (Zofran) 4 mg IVPUSH ONETIME PRN PRN Reason: Nausea/Vomiting Sodium Chloride (Saline Flush) 10 ml FLUSH ASDIRECTED PRN PRN Reason: Keep Vein Open - Interaction Infant Disposition, : [place] in Room with Family Support Person: , Mother - Recovery Exam Fundal Tone: Firm Fundal Level: 1 Fingerbreadths Below Umbilicus Fundal Placement: Midline Lochia Amount: Small Lochia Color: Rubra/Red Perineum Description: Intact, Minimal Bruising/Swelling Episiotomy/Laceration: None Bladder Status: Indwelling Catheter in Place Urinary Elimination: Indwelling Catheter - Exam General: Alert, Oriented HEENT: Pupils Equal Neck: Supple Lungs: Clear to Auscultation, Normal Respiratory Effort Cardiovascular: Regular Rate, Regular Rhythm GI/Abdominal Exam: Normal Bowel Sounds, Soft, Non-Tender, No Organomegaly, No Distention, No Abnormal Bruit, No Mass, Pelvis Stable Extremities: Normal Inspection, Normal Range of Motion, Non-Tender, No Pedal Edema, Normal Capillary Refill Wound/Incisions: Dressing Dry and Intact Neurological: No New Focal Deficit Psy/Mental Status: Alert, Normal Affect, Normal Mood - Problem List Review Problem List Initiated/Reviewed/Updated: Yes - My Orders Last 24 Hours: My Active Orders 03/07/17 12:41 Procedure Site Prep Instruct [RC] ASDIRECTED Verify Patient Consent Obtain [RC] PER UNIT ROUTINE 03/07/17 16:19 Patient Status [ADT] Routine Communication Order [RC] PER UNIT ROUTINE Communication Order [RC] PER UNIT ROUTINE Notify Provider Intake and Out [RC] ASDIRECTED Acetaminophen/oxyCODONE [Percocet 325-5 MG] 2 tab PO Q6H PRN Lanolin [Lansinoh HPA] See Dose Instructions TOP ASDIRECTED PRN Naloxone [Narcan] 0.1 mg IVPUSH SEECOMMENT PRN diphenhydrAMINE [Benadryl] 25 mg IVPUSH Q6H PRN ePHEDrine [ePHEDrine Sulfate] 5 mg IVPUSH SEECOMMENT PRN Assess Lochia [WOMSER] Per Unit Routine Assess Uterine Involution [WOMSER] Per Unit Routine Medication Administration Instruction [OM.PC] Routine 03/07/17 18:00 Simethicone 80 mg PO PCBED 03/07/17 21:00 Ketorolac [Toradol] 30 mg IVPUSH Q6H 03/07/17 Dinner Regular Diet [DIET] 03/08/17 05:11 CBC WITH AUTO DIFF [HEME] AM 03/08/17 13:51 Urinary Catheter Removal [RC] Per Unit Routine 03/08/17 15:00 Ibuprofen [Motrin] 600 mg PO Q6H PRN - Assessment Assessment:: POD1. Doing well. Routine care. - Plan Plan:: Doing well. POD1. No issues. Probable discharge tomorrow.
[2017-03-08] MEDS: Simethicone 80 MG Tab.Chew PO SCH ×4 (10:22→21:50)
[2017-03-08] MEDS: Ibuprofen 600 MG Tab PO PRN (19:52)
--- NOTE | 2017-03-08 20:17 | PCM48HPAN ---
Post Anesthesia Note - EVALUATION WITHIN 48HRS OF ANESTHETIC Vital Signs in Normal Range: Yes Patient Participated in Evaluation: Yes Respiratory Function Stable: Yes Airway Patent: Yes Cardiovascular Function Stable: Yes Hydration Status Stable: Yes Pain Control Satisfactory: Yes Nausea and Vomiting Control Satisfactory: Yes Mental Status Recovered: Yes
[2017-03-09] MEDS: Ibuprofen 600 MG Tab PO PRN ×2 (03:31→09:47)
[2017-03-09 08:50] VITALS: BP 132/77
[2017-03-09] MEDS: Simethicone 80 MG Tab.Chew PO SCH (09:47)
--- NOTE | 2017-03-09 11:08 | PCM.DCSUM1 ---
Discharge Summary - Hospital Course Free Text/Narrative:: Linden is a 21-year-old 1 now para 1001 white female who was delivered by section done on 03/07/2017 emergently for nonreassuring heart tones. The delivery was of a viable 6 lbs. 4 oz. female with Apgars of 8 and 9. Please see operative report for details. Postoperatively pain was controlled with ibuprofen and patient is doing well with that alone. She is made good bowel , bladder and amateur recovery. She is nursing without problems. Her vital signs are stable. Patient desires to be discharged today. - Discharge Data Discharge Date: 03/09/17 Discharge Disposition: Home, Self-Care 01 Condition: Good - Patient Summary/Data Operative Procedure(s) Performed: primary section - Patient Instructions Diet: Regular Diet as Tolerated (Nursing diet with increased calories and calcium) Activity: As Tolerated (No intercourse or tampons until seen back. No lifting greater than 15 pounds or tub baths times the next week. Refrain from driving a car.) Driving: Do Not Drive Showering/Bathing: May Shower Wound/Incision Care: Keep Operative Site/Wound Site Clean and Dry Notify Provider of: Fever, Increased Pain, Swelling and Redness, Drainage, Nausea and/or Vomiting - Discharge Plan Home Medications: Home Meds PNV95/Ferrous Fumarate/FA [ Tablet] 1 each PO DAILY 06/09/15 [History] Ibuprofen [IJD: Ibuprofen] 600 mg PO Q6H PRN tablet 03/09/17 [Rx] Referrals: Jolie Ardon MD [Family Provider] - (Return to clinicDr. Ardon- 4 weeks.) - Discharge Summary/Plan Comment DC Time >30 min.: No Discharge Summary/Plan Comment: Discharge instructions: 1. Discharge home 2. Diet, activity and follow-up discussed with patient. Recommend nursing diet with increased calories and calcium. 3. Precautions given concern increased pain, bleeding, temperature, signs/ symptoms of DVT/PE. 4. Medications per home medication was printed, discussed with and given to the patient. 5. Return to clinic-Dr. Ardon-4 weeks. Diagnosis: Term -delivered Condition: Good - Patient Data Vitals - Most Recent: Last Vital Signs Temp 36.6 C 03/09/17 07:38 Pulse 68 03/09/17 07:38 Resp 16 03/09/17 07:38 BP 132/77 03/09/17 07:38 Pulse Ox 99 03/09/17 07:38 Weight - Most Recent: 133.356 kg I&O - Last 24 hours: Intake & Output 03/08/17 03/09/17 03/09/17 22:59 06:59 14:59 Intake Total 1040 Output Total 500 Balance 540 Med Orders - Current: Current Medications Diphenhydramine HCl (Benadryl) 25 mg IVPUSH Q6H PRN PRN Reason: Itching or Nausea Emollient Ointment (Lansinoh Hpa) 0 gm TOP ASDIRECTED PRN PRN Reason: Sore Nipples Last Admin: 03/08/17 23:18 Dose: 1 applic Ephedrine Sulfate (Ephedrine Sulfate) 5 mg IVPUSH SEECOMMENT PRN PRN Reason: Other Ibuprofen (Motrin) 600 mg PO Q6H PRN PRN Reason: mild pain or fever Last Admin: 03/09/17 09:47 Dose: 600 mg Naloxone HCl (Narcan) 0.1 mg IVPUSH SEECOMMENT PRN PRN Reason: Respiratory Depression Ondansetron HCl (Zofran) 4 mg IVPUSH ONETIME PRN PRN Reason: Nausea/Vomiting Last Admin: 03/07/17 18:38 Dose: 4 mg Oxycodone/Acetaminophen (Percocet 325-5 Mg) 2 tab PO Q6H PRN PRN Reason: Pain (moderate 4-6) Simethicone (Simethicone) 80 mg PO PCBED [facility] Last Admin: 03/09/17 09:47 Dose: 80 mg Discontinued Medications Acetaminophen (Tylenol) 650 mg PO Q4H PRN PRN Reason: Headache Last Admin: 03/07/17 02:02 Dose: 650 mg Bupivacaine HCl (Marcaine 0.5%) Confirm Administered Dose 30 ml .ROUTE .STK-MED ONE Stop: 03/07/17 12:34 Last Admin: 03/07/17 13:07 Dose: 20 ml Carboprost Tromethamine (Hemabate Ds) Confirm Administered Dose 250 mcg .ROUTE .STK-MED ONE Stop: 03/07/17 13:13 Last Admin: 03/07/17 13:30 Dose: 250 mcg Citric Acid/Sodium Citrate (Bicitra Solution) 30 ml PO ONETIME ONE Stop: 03/07/17 12:42 Last Admin: 03/07/17 12:44 Dose: 30 ml Diphenhydramine HCl (Benadryl) 25 mg IVPUSH Q6H PRN PRN Reason: Pruritis Diphenhydramine HCl (Benadryl) 25 mg IVPUSH Q6H PRN PRN Reason: Pruritis Ephedrine Sulfate (Ephedrine Sulfate) 5 mg IVPUSH ASDIRECTED PRN PRN Reason: Hypotension Ephedrine Sulfate (Ephedrine Sulfate) 5 mg IVPUSH ASDIRECTED PRN PRN Reason: Hypotension Fentanyl (Sublimaze) 100 mcg EPIDUR ONETIME PRN PRN Reason: Pain Last Admin: 03/07/17 11:20 Dose: 100 mcg Fentanyl/Bupivacaine HCl (Fentanyl/Bupivacaine/Ns 2 Mcg-0.125% 100 Ml) 100 ml EPIDUR ASDIRECTED [facility] Last Admin: 03/07/17 11:19 Dose: 100 ml Lactated Ringer's (Ringers, Lactated) 1,000 mls @ 40 mls/hr IV ASDIRECTED [facility] Last Admin: 03/07/17 10:20 Dose: 40 mls/hr Ampicillin Sodium 2 gm/ Sodium (Chloride) 100 mls @ 200 mls/hr IV NOW [facility] Ampicillin Sodium 1 gm/ Sodium (Chloride) 100 mls @ 200 mls/hr IV Q4H [facility] Oxytocin/Lactated Ringer's (Pitocin In Lr 10 Units/1,000 Ml) 10 unit in 1,000 mls @ 12 mls/hr IV TITRATE [facility]; 2 MUNITS/MIN PRN Reason: Protocol Last Titration: 03/07/17 08:28 Dose: 8 munits/min, 48 mls/hr Oxytocin/Lactated Ringer's (Pitocin In Lr 10 Units/1,000 Ml) 10 unit in 1,000 mls @ 500 mls/hr IV .CONTINUOUS [facility] Ampicillin Sodium 2 gm/ Sodium (Chloride) 100 mls @ 200 mls/hr IV ONETIME ONE Stop: 03/06/17 18:29 Last Admin: 03/06/17 18:08 Dose: 200 mls/hr Ampicillin Sodium 1 gm/ Sodium (Chloride) 100 mls @ 200 mls/hr IV Q4H [facility] Last Admin: 03/07/17 22:25 Dose: Not Given Cefazolin Sodium/Dextrose 1 gm (/ Premix) 50 mls @ 100 mls/hr IV ONETIME ONE Stop: 03/07/17 13:10 Last Admin: 03/07/17 22:25 Dose: Not Given Cefazolin Sodium/Dextrose 2 gm (/ Premix) 50 mls @ 100 mls/hr IV ONETIME ONE Stop: 03/07/17 13:10 Last Admin: 03/07/17 22:25 Dose: Not Given Dextrose/Lactated Ringer's (Dextrose 5%-Lactated Ringers) 1,000 mls @ 125 mls/ hr IV ASDIRECTED [facility] Stop: 03/08/17 00:18 Last Admin: 03/07/17 21:02 Dose: 125 mls/hr Ketorolac Tromethamine (Toradol) 30 mg IVPUSH Q6H [facility] Stop: 03/08/17 04:20 Last Admin: 03/07/17 22:26 Dose: Not Given Ketorolac Tromethamine (Toradol) 30 mg IVPUSH Q6H [facility] Stop: 03/08/17 09:01 Last Admin: 03/08/17 10:21 Dose: 30 mg Metoclopramide HCl (Reglan) 10 mg IVPUSH ONETIME ONE Stop: 03/07/17 12:42 Last Admin: 03/07/17 12:43 Dose: 10 mg Misoprostol (Cytotec) 25 mcg VAG Q4HR [facility] Stop: 03/07/17 01:01 Last Admin: 03/07/17 03:46 Dose: Not Given Morphine Sulfate (Duramorph Pf) 10 mg .ROUTE .STK-MED ONE Stop: 03/07/17 13:23 Nalbuphine HCl (Nubain) 10 mg IVPUSH Q2H PRN PRN Reason: Pain (moderate 4-6) Last Admin: 03/07/17 09:19 Dose: 10 mg Ondansetron HCl (Zofran) 4 mg IVPUSH Q4H PRN PRN Reason: Nausea/Vomiting Ondansetron HCl (Zofran) 4 mg IVPUSH ONETIME PRN PRN Reason: Nausea/Vomiting Sodium Chloride (Saline Flush) 10 ml FLUSH ASDIRECTED PRN PRN Reason: Keep Vein Open *Q Meaningful Use (DIS) - VTE *Q VTE Criteria *Q: - Stroke *Q Stroke Criteria *Q: - AMI *Q AMI Criteria *Q:
== END 2017-03-09 11:46 | disposition home or self-care (01) | DRG 766 ==
LOC: JD.OB 13:12 → INTOOBSV 15:51 → JD.OB 15:51 → UNDOADMIN 15:51 → OBSVTOIN 03-07 13:12 → JD.OB 03-07 13:12
PROVIDERS: ADMIT Obstetrics & Gynecology; ATTEND Obstetrics & Gynecology
PROC: 10D00Z1 Extraction of Products of Conception, Low, Open Approach (ICD-10-PCS; principal; 2017-03-07)
PROC: 3E0P7VZ Introduction of Hormone into Female Reproductive, Via Natural or Artificial Opening (ICD-10-PCS; 2017-03-07)
PROC: 3E0P3VZ Introduction of Hormone into Female Reproductive, Percutaneous Approach (ICD-10-PCS; 2017-03-07)
PROC: 00HU33Z Insertion of Infusion Device into Spinal Canal, Percutaneous Approach (ICD-10-PCS; 2017-03-07)
PROC: 3E0R3BZ Introduction of Anesthetic Agent into Spinal Canal, Percutaneous Approach (ICD-10-PCS; 2017-03-07)
DX: O13.4 Gestational [pregnancy-induced] hypertension without significant proteinuria, complicating childbirth (principal); O76 Abnormality in fetal heart rate and rhythm complicating labor and delivery; Z3A.39 39 weeks gestation of pregnancy; Z37.0 Single live birth; Z88.1 Allergy status to other antibiotic agents; Z91.09 Other allergy status, other than to drugs and biological substances
CPT/HCPCS: 01961; 01967; 01968; 36415; 82565; 83615; 84450; 84460; 84520; 84550; 85025; 86850; 86900; 86901; 94762; A9270-GY; J0290; J1885; J2270; J2300; J2405; J2590; J2765; J3010; J7030; J7042; J7120